=== PATIENT | female | born 1960 | race Caucasian/White ===

== ENCOUNTER 2018-01-15 11:33 | Emergency (ER) | payer SELFPAY ==
[~2018-01-15] VITALS: Ht 157.5 cm; Wt 74.8 kg
[~2018-01-15 11:33] MED LIST: AMLO10/10 PO; AMLO10/20 PO; AMLO5 PO; ASPI81EC PO; ATOR10 PO; ATOR40TA PO; BUPR100; CEPH500 PO; CETI10 PO; CRUTCH3 USE; CRUTCH4 USE; DIPH50 PO; DOXE10 PO; FAMO20 PO; HYDACE5 PO; IBUP200; LORA1 PO; NEOPOLHCSU AS; OXYACE5T PO; PRED10 PO; PRED20 PO; SULTRIDS PO
[2018-01-15] MEDS ORDERED: MELO7.5 PO (11:41)
[2018-01-15] MEDS ORDERED: ASPI81CH PO (11:42)
[2018-01-15] MEDS ORDERED: ZESTRIL40 MG PO (11:42)
[2018-01-15] MEDS ORDERED: SPIR50 PO (11:42)
[2018-01-15] MEDS ORDERED: CARV25 PO (11:42)
[2018-01-15] MEDS ORDERED: Calcium 600 +1 EAC1 PO (11:43)
[2018-01-15] MEDS ORDERED: ATOR10 PO (11:43)
[2018-01-15] MEDS ORDERED: CLOP75 PO (11:43)
[2018-01-15 12:36] LABS: BASOPHILS ABSOLUTE AUTO 0.07 K/mm3 (0.00-0.23); BASOPHILS PERCENT AUTO 1 % (0-2); EOSINOPHILS ABSOLUTE AUTO 0.21 K/mm3 (0.00-0.68); EOSINOPHILS PERCENT AUTO 3 % (0-6); Hematocrit 44.2 % (33.0-51.0); Hemoglobin 14.5 g/dL (11.5-16.0); IMMATURE GRAN ABSOLUTE AUTO 0.03 K/mm3 (0.00-0.10); IMMATURE GRAN PERCENT AUTO 0 % (0-1); LYMPHOCYTES ABSOLUTE AUTO 2.42 K/mm3 (0.84-5.20); LYMPHOCYTES PERCENT AUTO 32 % (21-46); MONOCYTES ABSOLUTE AUTO 0.45 K/mm3 (0.16-1.47); MONOCYTES PERCENT AUTO 6 % (4-13); Mean Corpuscular HGB 29.8 pg (26.0-34.0); Mean Corpuscular HGB Conc 32.8 g/dL (31.5-36.5); Mean Corpuscular Volume 91 fL (80-100); Mean Platelet Volume 9.6 fL (9.1-12.4); NEUTROPHILS ABSOLUTE AUTO 4.37 K/mm3 (1.96-9.15); NEUTROPHILS PERCENT AUTO 58 % (41-73); Platelet Count 316 K/mm3 (150-400); RDW Coefficient Variation 13.2 % (11.7-14.2); RDW Standard Deviation 43.6 fL (35.1-46.3); Red Blood Cell Count 4.86 M/mm3 (3.80-5.20); White Blood Cell Count 7.55 K/mm3 (4.00-11.30)
[2018-01-15 12:51] LABS: Alanine Aminotransfer (ALT/SGP 92 U/L (12-78); Albumin, Blood 3.4 g/dL (3.4-5.0); Albumin/Globulin Ratio 0.9 (0.8-1.8); Alk Phos 116 U/L (50-136); Anion Gap 5 mmol/L (6-16); Aspartate Aminotrans (AST/SGOT 49 U/L (12-37); Bilirubin, Total 0.4 mg/dL (0.1-1.0); Blood Urea Nitrogen 9 mg/dL (8-24); Bun/Creatinine Ratio 13.4 (12.0-20.0); CO2, Blood 29 mmol/L (21-32); Calcium, Blood 8.5 mg/dL (8.5-10.1); Chloride, Blood 107 mmol/L (98-108); Creatinine, Blood 0.67 mg/dL (0.40-1.00); Globulin, Blood 3.9 g/dL (2.2-4.0); Glomerular Filtration Rate >60 (60-); Glucose, Blood 103 mg/dL (70-99); Potassium, Blood 3.8 mmol/L (3.5-5.5); Sodium, Blood 141 mmol/L (136-145); Total Protein, Blood 7.3 g/dL (6.4-8.2)
[2018-01-15 13:19] LABS: Troponin I <0.015 ng/mL (0.000-0.040)
[2018-01-15] MEDS ORDERED: IBUP800 PO (16:38)
[2018-01-15] MEDS ORDERED: Norco 5-325 Ta1 EACH PO (16:38)
[2018-01-15] MEDS ORDERED: CYCL10 PO (16:38)
== END 2018-01-15 16:50 | disposition home or self-care (01) ==
LOC: ER 11:33
PROVIDERS: Internal Medicine
DX: S29.012A Strain of muscle and tendon of back wall of thorax, initial encounter (principal); S39.012A Strain of muscle, fascia and tendon of lower back, initial encounter; L98.9 Disorder of the skin and subcutaneous tissue, unspecified; I10 Essential (primary) hypertension; E78.5 Hyperlipidemia, unspecified; F17.200 Nicotine dependence, unspecified, uncomplicated; Z88.1 Allergy status to other antibiotic agents; Z91.038 Other insect allergy status; Z88.5 Allergy status to narcotic agent; Z79.899 Other long term (current) drug therapy; Z79.82 Long term (current) use of aspirin; X58.XXXA Exposure to other specified factors, initial encounter
CPT/HCPCS: 36415; 74177; 80053; 81000; 83690; 84484; 85025; 93005; 93010; 96374; 96375; 99284; J1170; J2405; Q9967

== ENCOUNTER 2020-02-23 14:40 | Emergency (ER) | payer SELFPAY ==
[~2020-02-23] VITALS: Ht 157.5 cm; Wt 68.0 kg
[~2020-02-23 14:40] MED LIST changes: +ASPI81CH PO; +CARV25 PO; +CLOP75 PO; +CYCL10 PO; +Calcium 600 +1 EAC1 PO; +IBUP800 PO; +MELO7.5 PO; +Norco 5-325 Ta1 EACH PO; +SPIR50 PO; +ZESTRIL40 MG PO
[2020-02-23] MEDS ORDERED: Roxicodone5 MG PO (15:46)
[2020-02-23] MEDS ORDERED: ONDA4ODT MM (15:46)
== END 2020-02-23 15:59 | disposition home or self-care (01) ==
LOC: ER 14:40
DX: S22.32XA Fracture of one rib, left side, initial encounter for closed fracture (principal); W19.XXXA Unspecified fall, initial encounter
CPT/HCPCS: 71101; 73030; 99283-25

== ENCOUNTER 2020-02-24 04:32 | Emergency (ER) | payer OTHER ==
[~2020-02-24] VITALS: Ht 165.1 cm; Wt 81.7 kg
[~2020-02-24 04:32] MED LIST changes: +ONDA4ODT MM; +Roxicodone5 MG PO
== END 2020-02-24 05:39 | disposition home or self-care (01) ==
LOC: ER 04:32
DX: S22.32XA Fracture of one rib, left side, initial encounter for closed fracture (principal); I10 Essential (primary) hypertension; E78.5 Hyperlipidemia, unspecified; F17.200 Nicotine dependence, unspecified, uncomplicated; Z88.1 Allergy status to other antibiotic agents; Z91.030 Bee allergy status; Z88.5 Allergy status to narcotic agent; Z79.82 Long term (current) use of aspirin; Z79.899 Other long term (current) drug therapy; W19.XXXA Unspecified fall, initial encounter
CPT/HCPCS: 71045; 93005; 93010; 96372; 99285-25; A9270; J1170

== ENCOUNTER 2020-03-03 09:53 | Emergency (ER) | payer SELFPAY | END 2020-03-03 10:38 | disposition left against medical advice (07) | LOC: ER 09:53 | DX: Z53.21 Procedure and treatment not carried out due to patient leaving prior to being seen by health care provider (principal) ==

== ENCOUNTER 2020-03-05 12:28 | Emergency (ER) | payer SELFPAY ==
[~2020-03-05] VITALS: Ht 157.5 cm; Wt 74.8 kg
[2020-03-05] MEDS ORDERED: Percocet 5-3251 EACH PO (14:06)
== END 2020-03-05 14:48 | disposition home or self-care (01) ==
LOC: ER 12:28
DX: S22.32XD Fracture of one rib, left side, subsequent encounter for fracture with routine healing (principal); I10 Essential (primary) hypertension; E78.5 Hyperlipidemia, unspecified; Z88.6 Allergy status to analgesic agent; Z88.1 Allergy status to other antibiotic agents; Z91.030 Bee allergy status; Z88.5 Allergy status to narcotic agent; Z79.899 Other long term (current) drug therapy; Z79.82 Long term (current) use of aspirin; Z79.02 Long term (current) use of antithrombotics/antiplatelets; W19.XXXA Unspecified fall, initial encounter
CPT/HCPCS: 96374; 96375; 99282-25; J1170

== ENCOUNTER 2020-11-11 18:53 | Emergency (ER) | payer OTHER ==
[~2020-11-11] VITALS: Ht 165.1 cm; Wt 81.9 kg
[~2020-11-11 18:53] MED LIST changes: +ALBU90OI INH; +DELTASONE20 MG PO; +LEVO750 PO; +Percocet 5-3251 EACH PO
[2020-11-11 19:24] LABS: BASOPHILS ABSOLUTE AUTO 0.09 K/mm3 (0.00-0.23); BASOPHILS PERCENT AUTO 1 % (0-2); EOSINOPHILS ABSOLUTE AUTO 0.18 K/mm3 (0.00-0.68); EOSINOPHILS PERCENT AUTO 2 % (0-6); Hematocrit 48.6 % (33.0-51.0); Hemoglobin 15.1 g/dL (11.5-16.0); IMMATURE GRAN ABSOLUTE AUTO 0.03 K/mm3 (0.00-0.10); IMMATURE GRAN PERCENT AUTO 0 % (0-1); LYMPHOCYTES ABSOLUTE AUTO 2.18 K/mm3 (0.84-5.20); LYMPHOCYTES PERCENT AUTO 27 % (21-46); MONOCYTES ABSOLUTE AUTO 0.41 K/mm3 (0.16-1.47); MONOCYTES PERCENT AUTO 5 % (4-13); Mean Corpuscular HGB 29.9 pg (26.0-34.0); Mean Corpuscular HGB Conc 31.1 g/dL (31.5-36.5); Mean Corpuscular Volume 96 fL (80-100); Mean Platelet Volume 9.6 fL (9.1-12.4); NEUTROPHILS PERCENT AUTO 65 % (41-73); Platelet Count 320 K/mm3 (150-400); RDW Coefficient Variation 14.6 % (11.7-14.2); RDW Standard Deviation 51.7 fL (35.1-46.3); Red Blood Cell Count 5.05 M/mm3 (3.80-5.20); White Blood Cell Count 8.19 K/mm3 (4.00-11.30)
[2020-11-11 19:37] LABS: Alanine Aminotransfer (ALT/SGP 70 U/L (12-78); Albumin, Blood 3.3 g/dL (3.4-5.0); Albumin/Globulin Ratio 0.8 (0.8-1.8); Alk Phos 134 U/L (50-136); Anion Gap 8 mmol/L (6-16); Aspartate Aminotrans (AST/SGOT 56 U/L (12-37); Bilirubin, Total 0.8 mg/dL (0.1-1.0); Blood Urea Nitrogen 17 mg/dL (8-24); Bun/Creatinine Ratio 20.9 (12.0-20.0); CO2, Blood 25 mmol/L (21-32); Calcium, Blood 8.7 mg/dL (8.5-10.1); Chloride, Blood 110 mmol/L (98-108); Creatinine, Blood 0.81 mg/dL (0.40-1.00); Globulin, Blood 4.2 g/dL (2.2-4.0); Glomerular Filtration Rate >60 (60-); Glucose, Blood 119 mg/dL (70-99); Potassium, Blood 3.9 mmol/L (3.5-5.5); Sodium, Blood 143 mmol/L (136-145); Total Protein, Blood 7.5 g/dL (6.4-8.2); Troponin I 0.103 ng/mL (0.000-0.040)
[2020-11-11 20:47] LABS: International Normalized Ratio 1.15; Prothrombin Time Results 12.2 Sec (9.7-11.5)
== END 2020-11-12 01:52 | disposition other institution (70) ==
LOC: ER 18:53
PROVIDERS: Pharmacist; Physician Assistant
DX: I21.4 Non-ST elevation (NSTEMI) myocardial infarction (principal); I10 Essential (primary) hypertension; E78.5 Hyperlipidemia, unspecified; Z79.899 Other long term (current) drug therapy; Z88.6 Allergy status to analgesic agent; Z88.1 Allergy status to other antibiotic agents; Z91.030 Bee allergy status
CPT/HCPCS: 36415; 71045; 80053; 84484; 85025; 85610; 85730; 93005; 93010; 96365; 96366; 96375; 99285-25; A9270; J1644; J2405

== ENCOUNTER 2020-11-26 12:23 | Day surgery (SDC) | payer OTHER ==
[2020-11-26] MEDS ORDERED: Lisinopril2.5 MG PO (12:50)
[2020-11-26] MEDS ORDERED: WARF5 PO (12:50)
[2020-11-26] MEDS ORDERED: CARV3.125 PO (12:50)
[2020-11-26] MEDS ORDERED: FURO80 PO (12:50)
[2020-11-26] MEDS ORDERED: ENOX120I SC (12:51)
--- NOTE | 2020-11-26 12:51 | NUR ---
PT'S FINGERSTICK INR RESULTS 1.1 TODAY. EDUCATED ON MEDS AND COUMADIN DIET. PT TO BRING IN HER LIST OF MEDICATIONS TOMORROW TO VERIFY MED DOSE AND FREQUENCY.
--- NOTE | 2020-11-26 12:57 | NUR ---
DAILY FINGERSTICK INR RESULTS FAXED TO [facility] OFF[facility] AT [phone].
== END 2020-11-26 12:44 | disposition home or self-care (01) ==
LOC: ATC 12:23
DX: I26.93 Single subsegmental thrombotic pulmonary embolism without acute cor pulmonale (principal); I11.0 Hypertensive heart disease with heart failure; I50.21 Acute systolic (congestive) heart failure; J44.9 Chronic obstructive pulmonary disease, unspecified; Z72.0 Tobacco use; Z88.1 Allergy status to other antibiotic agents; Z88.8 Allergy status to other drugs, medicaments and biological substances
CPT/HCPCS: 36416; 85610; 96372; J1650

== ENCOUNTER 2020-11-27 00:31 | Day surgery (SDC) | payer OTHER ==
[~2020-11-27 00:31] MED LIST changes: +CARV3.125 PO; +ENOX120I SC; +FURO80 PO; +Lisinopril2.5 MG PO; +WARF5 PO
[2020-11-27 12:30] LABS: Hematocrit 45.3 % (33.0-51.0); Hemoglobin 14.6 g/dL (11.5-16.0); Mean Corpuscular HGB 29.9 pg (26.0-34.0); Mean Corpuscular HGB Conc 32.2 g/dL (31.5-36.5); Mean Corpuscular Volume 93 fL (80-100); Mean Platelet Volume 10.2 fL (9.1-12.4); Platelet Count 558 K/mm3 (150-400); RDW Coefficient Variation 13.8 % (11.7-14.2); RDW Standard Deviation 47.6 fL (35.1-46.3); Red Blood Cell Count 4.88 M/mm3 (3.80-5.20); White Blood Cell Count 9.56 K/mm3 (4.00-11.30)
[2020-11-27 13:13] LABS: Anion Gap 7 mmol/L (6-16); Blood Urea Nitrogen 15 mg/dL (8-24); Bun/Creatinine Ratio 22.2 (12.0-20.0); CO2, Blood 27 mmol/L (21-32); Calcium, Blood 8.8 mg/dL (8.5-10.1); Chloride, Blood 105 mmol/L (98-108); Creatinine, Blood 0.68 mg/dL (0.40-1.00); Glomerular Filtration Rate >60 (60-); Glucose, Blood 181 mg/dL (70-99); Sodium, Blood 139 mmol/L (136-145)
--- NOTE | 2020-11-27 18:30 | NUR ---
PT STS SHE HAS NOT RECEIVED HER RX FOR COUMADIN, STS HER PHARMACY DID NOT RECEIVE IT. NOTIFIED [facility] OFFICE, LEFT MESSAGE WITH [employer] BECAUSE NO PROVIDER OR PRINCIPAL TRAINER WAS AVAILABLE AT 1150 TODAY.
== END 2020-11-27 12:20 | disposition home or self-care (01) ==
LOC: ATC 00:31
PROVIDERS: Physician Assistant
DX: I26.93 Single subsegmental thrombotic pulmonary embolism without acute cor pulmonale (principal); I21.4 Non-ST elevation (NSTEMI) myocardial infarction; I10 Essential (primary) hypertension; J44.9 Chronic obstructive pulmonary disease, unspecified; R10.32 Left lower quadrant pain; Z88.1 Allergy status to other antibiotic agents; Z88.6 Allergy status to analgesic agent; Z87.891 Personal history of nicotine dependence; Z79.01 Long term (current) use of anticoagulants
CPT/HCPCS: 36416; 80048; 85027; 85610; 96372; J1650

== ENCOUNTER 2020-11-28 03:47 | Day surgery (SDC) | payer OTHER ==
--- NOTE | 2020-11-28 12:37 | NUR ---
PT CAME TO ROOM C/O R UPPER QUADRANT AND FLANK PAIN. STATES IT IS A 8. TALKS ABOUT NEEDING SLEEP. STATES SHE ATE [employer] AND [employer] LAST NIGHT. SHE STATES SHE WOKE UP WITH THIS PAIN. PT STATES SHE IS GOING TO GO HOME AND TAKE A NAP. IF SHE WAKES UP WITH THIS PAIN SHE WILL GO TO ER.
== END 2020-11-28 12:07 | disposition home or self-care (01) ==
LOC: ATC 03:47
DX: I26.93 Single subsegmental thrombotic pulmonary embolism without acute cor pulmonale (principal); I11.0 Hypertensive heart disease with heart failure; J44.9 Chronic obstructive pulmonary disease, unspecified; I50.21 Acute systolic (congestive) heart failure; I25.2 Old myocardial infarction; Z79.01 Long term (current) use of anticoagulants; Z87.891 Personal history of nicotine dependence; Z88.6 Allergy status to analgesic agent; Z88.1 Allergy status to other antibiotic agents
CPT/HCPCS: 36416; 85610; 96372; J1650

== ENCOUNTER 2020-11-29 02:25 | Day surgery (SDC) | payer OTHER | END 2020-11-29 11:48 | disposition home or self-care (01) | LOC: ATC 02:25 | DX: I26.93 Single subsegmental thrombotic pulmonary embolism without acute cor pulmonale (principal); I50.21 Acute systolic (congestive) heart failure; I11.0 Hypertensive heart disease with heart failure; E66.9 Obesity, unspecified; J44.9 Chronic obstructive pulmonary disease, unspecified; Z79.899 Other long term (current) drug therapy; Z87.891 Personal history of nicotine dependence; Z68.31 Body mass index [BMI] 31.0-31.9, adult; Z88.6 Allergy status to analgesic agent; Z88.1 Allergy status to other antibiotic agents; Z91.038 Other insect allergy status; Z79.01 Long term (current) use of anticoagulants | CPT/HCPCS: 36416; 85610; 96372; J1650 ==

== ENCOUNTER 2020-11-30 00:29 | Day surgery (SDC) | payer OTHER ==
--- NOTE | 2020-11-30 11:00 | NUR ---
COUMADIN INCREASED. PER THE PT, DR. HAYS CALLED HER AND STATED THAT SHE IS TO INCREASE HER COUMADIN TO 10MG DAILY FOR 3 DAYS STARTING 11/30/20. THEN PT IS TO RETURN TO 5MG OF COUMADIN DAILY.
== END 2020-11-30 10:57 | disposition home or self-care (01) ==
LOC: ATC 00:29
DX: I26.93 Single subsegmental thrombotic pulmonary embolism without acute cor pulmonale (principal); I21.4 Non-ST elevation (NSTEMI) myocardial infarction; J44.1 Chronic obstructive pulmonary disease with (acute) exacerbation; I11.0 Hypertensive heart disease with heart failure; I50.21 Acute systolic (congestive) heart failure; J96.01 Acute respiratory failure with hypoxia; G93.41 Metabolic encephalopathy; F15.19 Other stimulant abuse with unspecified stimulant-induced disorder; Z79.01 Long term (current) use of anticoagulants; Z87.891 Personal history of nicotine dependence
CPT/HCPCS: 36416; 85610; 96372; J1650

== ENCOUNTER 2020-12-01 00:08 | Day surgery (SDC) | payer OTHER | END 2020-12-01 11:17 | disposition home or self-care (01) | LOC: ATC 00:08 | DX: I26.93 Single subsegmental thrombotic pulmonary embolism without acute cor pulmonale (principal); J44.9 Chronic obstructive pulmonary disease, unspecified; I11.0 Hypertensive heart disease with heart failure; I50.21 Acute systolic (congestive) heart failure; I25.2 Old myocardial infarction; F15.11 Other stimulant abuse, in remission; Z87.891 Personal history of nicotine dependence; Z79.01 Long term (current) use of anticoagulants; Z79.82 Long term (current) use of aspirin | CPT/HCPCS: 36416; 85610; 96372; J1650 ==

== ENCOUNTER 2020-12-02 00:09 | Day surgery (SDC) | payer OTHER ==
--- NOTE | 2020-12-02 09:52 | NUR ---
INR RESULTS FAXED TO DR [facility] PER ORDER REQUEST
== END 2020-12-02 08:55 | disposition home or self-care (01) ==
LOC: ATC 00:09
DX: I26.93 Single subsegmental thrombotic pulmonary embolism without acute cor pulmonale (principal); I11.0 Hypertensive heart disease with heart failure; J44.9 Chronic obstructive pulmonary disease, unspecified; I21.4 Non-ST elevation (NSTEMI) myocardial infarction; R10.32 Left lower quadrant pain; G93.41 Metabolic encephalopathy; I50.21 Acute systolic (congestive) heart failure; J96.01 Acute respiratory failure with hypoxia; F15.10 Other stimulant abuse, uncomplicated; Z88.1 Allergy status to other antibiotic agents; Z88.6 Allergy status to analgesic agent; Z87.891 Personal history of nicotine dependence; Z79.01 Long term (current) use of anticoagulants
CPT/HCPCS: 36416; 85610; 96372; J1650

== ENCOUNTER 2020-12-03 00:09 | Day surgery (SDC) | payer OTHER | END 2020-12-03 11:05 | disposition home or self-care (01) | LOC: ATC 00:09 | DX: I26.93 Single subsegmental thrombotic pulmonary embolism without acute cor pulmonale (principal); J44.9 Chronic obstructive pulmonary disease, unspecified; I11.0 Hypertensive heart disease with heart failure; I50.21 Acute systolic (congestive) heart failure; Z87.891 Personal history of nicotine dependence; Z79.01 Long term (current) use of anticoagulants | CPT/HCPCS: 36416; 85610; 96372; J1650 ==

== ENCOUNTER 2020-12-04 07:07 | Day surgery (SDC) | payer OTHER ==
--- NOTE | 2020-12-04 12:00 | NUR ---
PT TO GO TO OUTPATIENT LAB OR [facility] OVER THE WEEKEND FOR FINGERSTICK INR AND THEN COME INTO THE [facility] FOR HER LOVENOX INJECTION BOTH DAYS. COPY OF ORDER GIVEN TO PT AND FAXED TO OUTPATIENT LAB.
--- NOTE | 2020-12-04 13:23 | NUR ---
INR RESULTS FROM TODAY FAXED TO [facility]. INR TODAY WAS 1.5.
== END 2020-12-04 11:42 | disposition home or self-care (01) ==
LOC: ATC 07:07
DX: I26.93 Single subsegmental thrombotic pulmonary embolism without acute cor pulmonale (principal); I11.0 Hypertensive heart disease with heart failure; J44.9 Chronic obstructive pulmonary disease, unspecified; I25.2 Old myocardial infarction; G93.41 Metabolic encephalopathy; I50.21 Acute systolic (congestive) heart failure; F15.10 Other stimulant abuse, uncomplicated; Z88.6 Allergy status to analgesic agent; Z88.1 Allergy status to other antibiotic agents; Z87.891 Personal history of nicotine dependence; Z79.01 Long term (current) use of anticoagulants; Z79.82 Long term (current) use of aspirin
CPT/HCPCS: 36416; 85610; 96372; J1650

== ENCOUNTER 2020-12-05 01:36 | Day surgery (SDC) | payer OTHER | END 2020-12-05 11:29 | disposition home or self-care (01) | LOC: ATC 01:36 | DX: I26.93 Single subsegmental thrombotic pulmonary embolism without acute cor pulmonale (principal); J44.9 Chronic obstructive pulmonary disease, unspecified; I11.0 Hypertensive heart disease with heart failure; I50.21 Acute systolic (congestive) heart failure; I25.2 Old myocardial infarction; Z87.891 Personal history of nicotine dependence; Z79.01 Long term (current) use of anticoagulants; Z79.82 Long term (current) use of aspirin; Z88.1 Allergy status to other antibiotic agents; Z88.6 Allergy status to analgesic agent | CPT/HCPCS: 36416; 85610; 96372; J1650 ==

== ENCOUNTER 2020-12-06 01:24 | Day surgery (SDC) | payer OTHER | END 2020-12-06 12:07 | disposition home or self-care (01) | LOC: ATC 01:24 | DX: I26.93 Single subsegmental thrombotic pulmonary embolism without acute cor pulmonale (principal); I11.0 Hypertensive heart disease with heart failure; I50.21 Acute systolic (congestive) heart failure; I25.2 Old myocardial infarction; J44.9 Chronic obstructive pulmonary disease, unspecified; F15.10 Other stimulant abuse, uncomplicated; Z88.6 Allergy status to analgesic agent; Z88.1 Allergy status to other antibiotic agents; Z86.61 Personal history of infections of the central nervous system; Z87.891 Personal history of nicotine dependence; Z79.01 Long term (current) use of anticoagulants; Z79.82 Long term (current) use of aspirin; Z79.899 Other long term (current) drug therapy | CPT/HCPCS: 96372; J1650 ==

== ENCOUNTER 2020-12-07 00:30 | Day surgery (SDC) | payer OTHER ==
--- NOTE | 2020-12-07 11:15 | NUR ---
DISCUSSED DIET AND FOODS THAT CAN AFFECT INR NUMBER. PT VERBALIZED UNDERSTANDING. PT HEARS FROM MD EVERY NIGHT REGARDING COUMADIN DOSING. PT GOING TO ASK MD IRBY IF SHE CAN INCREASE HER COUMADIN DOSE. PT TOOK 5MG COUMADIN LAST NIGHT DIRECTED BY
--- NOTE | 2020-12-07 11:18 | NUR ---
INR RESULTS FAXED TO [facility] PER WRITTEN ORDER
[2020-12-08] MEDS ORDERED: BUDESONIDE-FO10.2 G2 INH (11:23)
[2020-12-08] MEDS ORDERED: ASPI81CH PO (11:24)
[2020-12-08] MEDS ORDERED: POTCHL20ER PO (11:26)
[2020-12-08] MEDS ORDERED: MAGNESIUM OXID500 MG PO (11:26)
[2020-12-08] MEDS ORDERED: SPIR25 PO (11:27)
[2020-12-08] MEDS ORDERED: ATOR40TA PO (11:28)
== END 2020-12-07 11:11 | disposition home or self-care (01) ==
LOC: ATC 00:30
DX: I26.93 Single subsegmental thrombotic pulmonary embolism without acute cor pulmonale (principal); J44.9 Chronic obstructive pulmonary disease, unspecified; I11.0 Hypertensive heart disease with heart failure; I50.21 Acute systolic (congestive) heart failure; I25.2 Old myocardial infarction; F15.11 Other stimulant abuse, in remission; Z87.891 Personal history of nicotine dependence; Z79.01 Long term (current) use of anticoagulants; Z79.82 Long term (current) use of aspirin; Z88.6 Allergy status to analgesic agent; Z88.1 Allergy status to other antibiotic agents; Z86.61 Personal history of infections of the central nervous system
CPT/HCPCS: 85610; 96372; J1650

== ENCOUNTER 2020-12-08 00:35 | Day surgery (SDC) | payer OTHER ==
[2020-12-08] MEDS ORDERED: BUDESONIDE-FO10.2 G2 INH (11:23)
[2020-12-08] MEDS ORDERED: ASPI81CH PO (11:24)
[2020-12-08] MEDS ORDERED: MAGNESIUM OXID500 MG PO (11:26)
[2020-12-08] MEDS ORDERED: POTCHL20ER PO (11:26)
[2020-12-08] MEDS ORDERED: SPIR25 PO (11:27)
[2020-12-08] MEDS ORDERED: ATOR40TA PO (11:28)
== END 2020-12-08 11:27 | disposition home or self-care (01) ==
LOC: ATC 00:35
DX: I26.93 Single subsegmental thrombotic pulmonary embolism without acute cor pulmonale (principal); I11.0 Hypertensive heart disease with heart failure; I50.21 Acute systolic (congestive) heart failure; J44.9 Chronic obstructive pulmonary disease, unspecified; F15.10 Other stimulant abuse, uncomplicated; I25.2 Old myocardial infarction; Z79.01 Long term (current) use of anticoagulants; Z88.6 Allergy status to analgesic agent; Z88.1 Allergy status to other antibiotic agents; Z87.891 Personal history of nicotine dependence
CPT/HCPCS: 36416; 85610; 96372; J1650

== ENCOUNTER 2020-12-09 00:08 | Day surgery (SDC) | payer OTHER ==
[~2020-12-09 00:08] MED LIST changes: +BUDESONIDE-FO10.2 G2 INH; +MAGNESIUM OXID500 MG PO; +POTCHL20ER PO; +SPIR25 PO
--- NOTE | 2020-12-09 13:45 | NUR ---
FINGERSTICK INR = 1.7 TODAY. RESULTS FAXED TO [facility].
== END 2020-12-09 11:23 | disposition home or self-care (01) ==
LOC: ATC 00:08
DX: I26.93 Single subsegmental thrombotic pulmonary embolism without acute cor pulmonale (principal); J44.9 Chronic obstructive pulmonary disease, unspecified; I11.0 Hypertensive heart disease with heart failure; I50.21 Acute systolic (congestive) heart failure; Z88.1 Allergy status to other antibiotic agents; Z88.8 Allergy status to other drugs, medicaments and biological substances; Z87.891 Personal history of nicotine dependence
CPT/HCPCS: 36416; 85610; 96372; J1650

== ENCOUNTER 2020-12-10 00:19 | Day surgery (SDC) | payer OTHER ==
--- NOTE | 2020-12-10 13:02 | NUR ---
fingerstick INR results faxed to [facility] office.
== END 2020-12-10 11:18 | disposition home or self-care (01) ==
LOC: ATC 00:19
DX: I26.93 Single subsegmental thrombotic pulmonary embolism without acute cor pulmonale (principal); I25.2 Old myocardial infarction; I11.0 Hypertensive heart disease with heart failure; J44.9 Chronic obstructive pulmonary disease, unspecified; Z87.891 Personal history of nicotine dependence; Z88.6 Allergy status to analgesic agent; Z88.1 Allergy status to other antibiotic agents; I50.21 Acute systolic (congestive) heart failure; Z79.82 Long term (current) use of aspirin; Z79.01 Long term (current) use of anticoagulants
CPT/HCPCS: 36416; 85610; 99211; J1650

== ENCOUNTER 2020-12-11 01:56 | Day surgery (SDC) | payer OTHER | END 2020-12-11 22:46 | disposition home or self-care (01) | LOC: ATC 01:56 | DX: I26.93 Single subsegmental thrombotic pulmonary embolism without acute cor pulmonale (principal); J44.9 Chronic obstructive pulmonary disease, unspecified; I11.0 Hypertensive heart disease with heart failure; I50.20 Unspecified systolic (congestive) heart failure; Z87.891 Personal history of nicotine dependence; Z88.1 Allergy status to other antibiotic agents; Z88.6 Allergy status to analgesic agent ==

== ENCOUNTER 2020-12-12 01:37 | Observation (INO) | payer OTHER ==
[~2020-12-12] VITALS: Ht 157.5 cm; Wt 79.7 kg
[2020-12-12 02:19] LABS: BASOPHILS ABSOLUTE AUTO 0.07 K/mm3 (0.00-0.23); BASOPHILS PERCENT AUTO 1 % (0-2); EOSINOPHILS ABSOLUTE AUTO 0.58 K/mm3 (0.00-0.68); EOSINOPHILS PERCENT AUTO 8 % (0-6); Hematocrit 45.2 % (33.0-51.0); Hemoglobin 14.7 g/dL (11.5-16.0); IMMATURE GRAN ABSOLUTE AUTO 0.03 K/mm3 (0.00-0.10); IMMATURE GRAN PERCENT AUTO 0 % (0-1); LYMPHOCYTES ABSOLUTE AUTO 2.58 K/mm3 (0.84-5.20); LYMPHOCYTES PERCENT AUTO 33 % (21-46); MONOCYTES ABSOLUTE AUTO 0.42 K/mm3 (0.16-1.47); MONOCYTES PERCENT AUTO 5 % (4-13); Mean Corpuscular HGB 30.2 pg (26.0-34.0); Mean Corpuscular HGB Conc 32.5 g/dL (31.5-36.5); Mean Corpuscular Volume 93 fL (80-100); Mean Platelet Volume 9.3 fL (9.1-12.4); NEUTROPHILS ABSOLUTE AUTO 4.06 K/mm3 (1.96-9.15); NEUTROPHILS PERCENT AUTO 53 % (41-73); Platelet Count 366 K/mm3 (150-400); RDW Coefficient Variation 14.6 % (11.7-14.2); RDW Standard Deviation 50.7 fL (35.1-46.3); Red Blood Cell Count 4.86 M/mm3 (3.80-5.20); White Blood Cell Count 7.74 K/mm3 (4.00-11.30)
[2020-12-12 02:36] LABS: International Normalized Ratio 2.31; Prothrombin Time Results 23.6 Sec (9.7-11.5)
[2020-12-12 02:37] LABS: Alanine Aminotransfer (ALT/SGP 51 U/L (12-78); Albumin, Blood 3.4 g/dL (3.4-5.0); Albumin/Globulin Ratio 0.8 (0.8-1.8); Alk Phos 144 U/L (50-136); Anion Gap 9 mmol/L (6-16); Aspartate Aminotrans (AST/SGOT 49 U/L (12-37); Bilirubin, Total 0.3 mg/dL (0.1-1.0); Blood Urea Nitrogen 19 mg/dL (8-24); Bun/Creatinine Ratio 25.5 (12.0-20.0); CO2, Blood 24 mmol/L (21-32); Calcium, Blood 8.5 mg/dL (8.5-10.1); Chloride, Blood 108 mmol/L (98-108); Creatinine, Blood 0.75 mg/dL (0.40-1.00); Globulin, Blood 4.2 g/dL (2.2-4.0); Glomerular Filtration Rate >60 (60-); Glucose, Blood 141 mg/dL (70-99); Magnesium, Blood 1.9 mg/dL (1.6-2.4); Potassium, Blood 4.2 mmol/L (3.5-5.5); Sodium, Blood 141 mmol/L (136-145); Total Protein, Blood 7.6 g/dL (6.4-8.2); Troponin I 0.015 ng/mL (0.000-0.040)
[2020-12-12 10:05] LABS: BASOPHILS ABSOLUTE AUTO 0.06 K/mm3 (0.00-0.23); BASOPHILS PERCENT AUTO 1 % (0-2); EOSINOPHILS ABSOLUTE AUTO 0.49 K/mm3 (0.00-0.68); EOSINOPHILS PERCENT AUTO 7 % (0-6); Hematocrit 43.4 % (33.0-51.0); Hemoglobin 13.9 g/dL (11.5-16.0); IMMATURE GRAN ABSOLUTE AUTO 0.03 K/mm3 (0.00-0.10); IMMATURE GRAN PERCENT AUTO 0 % (0-1); LYMPHOCYTES ABSOLUTE AUTO 2.15 K/mm3 (0.84-5.20); LYMPHOCYTES PERCENT AUTO 29 % (21-46); MONOCYTES ABSOLUTE AUTO 0.51 K/mm3 (0.16-1.47); MONOCYTES PERCENT AUTO 7 % (4-13); Mean Corpuscular Volume 94 fL (80-100); Mean Platelet Volume 9.5 fL (9.1-12.4); NEUTROPHILS ABSOLUTE AUTO 4.07 K/mm3 (1.96-9.15); NEUTROPHILS PERCENT AUTO 56 % (41-73); Platelet Count 326 K/mm3 (150-400); RDW Coefficient Variation 14.8 % (11.7-14.2); Red Blood Cell Count 4.64 M/mm3 (3.80-5.20); White Blood Cell Count 7.31 K/mm3 (4.00-11.30)
[2020-12-12 10:27] LABS: Alanine Aminotransfer (ALT/SGP 83 U/L (12-78); Albumin, Blood 3.4 g/dL (3.4-5.0); Albumin/Globulin Ratio 0.9 (0.8-1.8); Alk Phos 126 U/L (50-136); Anion Gap 3 mmol/L (6-16); Aspartate Aminotrans (AST/SGOT 109 U/L (12-37); Bilirubin, Total 0.4 mg/dL (0.1-1.0); Blood Urea Nitrogen 21 mg/dL (8-24); CO2, Blood 27 mmol/L (21-32); CPK Creatine Kinase 61 U/L (26-193); Calcium, Blood 8.7 mg/dL (8.5-10.1); Chloride, Blood 111 mmol/L (98-108); Creatinine, Blood 0.72 mg/dL (0.40-1.00); Globulin, Blood 3.8 g/dL (2.2-4.0); Glomerular Filtration Rate >60 (60-); Glucose, Blood 80 mg/dL (70-99); Potassium, Blood 4.4 mmol/L (3.5-5.5); Sodium, Blood 141 mmol/L (136-145); Total Protein, Blood 7.2 g/dL (6.4-8.2); Troponin I 0.121 ng/mL (0.000-0.040)
--- NOTE | 2020-12-12 12:51 | NUR ---
ECHOCARDIOGRAM COMPLETED
--- NOTE | 2020-12-12 17:37 | NUR ---
SHIFT SUMMARY PATIENT ALERT AND ORIENTED THIS SHIFT. PATIENT SLEPT MUCH OF THIS SHIFT AFTER EARLY AM ADMISSION. PATIENT STATES CONTINUED MODERATE CP THIS SHIFT. CARDIOLOGY IN THIS AM TO CONSULT ON THE PATIENT. PATIENT CONTINUES TO WEAR THE EXTERNAL DEFIBULATOR PRESCRIBED AT [facility]. PATIENT UP INDEPENDENTLY IN THE ROOM.
[2020-12-12 18:36] LABS: Troponin I 0.094 ng/mL (0.000-0.040)
[2020-12-13 04:57] LABS: BASOPHILS ABSOLUTE AUTO 0.06 K/mm3 (0.00-0.23); BASOPHILS PERCENT AUTO 1 % (0-2); EOSINOPHILS ABSOLUTE AUTO 0.51 K/mm3 (0.00-0.68); EOSINOPHILS PERCENT AUTO 7 % (0-6); Hematocrit 44.1 % (33.0-51.0); Hemoglobin 14.2 g/dL (11.5-16.0); IMMATURE GRAN ABSOLUTE AUTO 0.03 K/mm3 (0.00-0.10); IMMATURE GRAN PERCENT AUTO 0 % (0-1); LYMPHOCYTES PERCENT AUTO 35 % (21-46); MONOCYTES ABSOLUTE AUTO 0.41 K/mm3 (0.16-1.47); MONOCYTES PERCENT AUTO 6 % (4-13); Mean Corpuscular HGB 30.5 pg (26.0-34.0); Mean Corpuscular HGB Conc 32.2 g/dL (31.5-36.5); Mean Corpuscular Volume 95 fL (80-100); Mean Platelet Volume 9.6 fL (9.1-12.4); NEUTROPHILS ABSOLUTE AUTO 3.45 K/mm3 (1.96-9.15); NEUTROPHILS PERCENT AUTO 50 % (41-73); Platelet Count 303 K/mm3 (150-400); RDW Coefficient Variation 14.9 % (11.7-14.2); RDW Standard Deviation 51.4 fL (35.1-46.3); Red Blood Cell Count 4.65 M/mm3 (3.80-5.20); White Blood Cell Count 6.86 K/mm3 (4.00-11.30)
[2020-12-13 05:11] LABS: International Normalized Ratio 2.41; Prothrombin Time Results 24.5 Sec (9.7-11.5)
--- NOTE | 2020-12-13 05:14 | NUR ---
SHIFT SUMMARY ASSUMED CARE OF PT AT 1900. PT IS A/OX4. 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 PT DID NOT SLEEP WITH HER LIFE VEST ON PER REQUEST. LUNG SOUNDS CLEAR. PT IS INDEPENDENT TO BATHROOM. PT C/O GENERALIZED PAIN. MEDICATED PER EMAR. CALL LIGHT IN REACH, BED IN LOWEST POSTION.
[2020-12-13 05:24] LABS: Alanine Aminotransfer (ALT/SGP 63 U/L (12-78); Albumin, Blood 3.3 g/dL (3.4-5.0); Albumin/Globulin Ratio 0.8 (0.8-1.8); Alk Phos 110 U/L (50-136); Anion Gap 5 mmol/L (6-16); Aspartate Aminotrans (AST/SGOT 50 U/L (12-37); Bilirubin, Total 0.5 mg/dL (0.1-1.0); Blood Urea Nitrogen 20 mg/dL (8-24); Bun/Creatinine Ratio 30.6 (12.0-20.0); CO2, Blood 25 mmol/L (21-32); Calcium, Blood 8.7 mg/dL (8.5-10.1); Chloride, Blood 110 mmol/L (98-108); Creatinine, Blood 0.65 mg/dL (0.40-1.00); Glomerular Filtration Rate >60 (60-); Glucose, Blood 90 mg/dL (70-99); Potassium, Blood 4.2 mmol/L (3.5-5.5); Sodium, Blood 140 mmol/L (136-145); Total Protein, Blood 7.3 g/dL (6.4-8.2)
[2020-12-13] MEDS ORDERED: FURO20 PO (12:57)
[2020-12-13] MEDS ORDERED: LOSA25 PO (12:58)
[2020-12-13] MEDS ORDERED: ALDACTONE25 MG PO (13:00)
--- NOTE | 2020-12-13 14:46 | NUR ---
DISCHARGE NOTE. PATIENT DISCHARGED TO HOME. PATIENT ALERT AND ORIENTED THROUGHOUT THIS SHIFT. PATIENT UP INDEPENDENTLY IN THE ROOM. PATIENT WALKING IN THE HALLS THROUGHOUT THIS SHIFT. PATIENT DENIES CHEST PAIN THIS SHIFT. IV REMOVED PRIOR TO DISCHARGE. DISCHARGE AND MEDICATION EDUCATION PROVIDED. PATIENT STATES NO QUESTIONS AT THIS TIME. PATIENT TO VEHICLE VIA WHEELCHAIR.
== END 2020-12-13 13:50 | disposition home or self-care (01) ==
LOC: ER 01:37 → MEDS 01:38
PROVIDERS: Emergency Medicine; ADMIT Internal Medicine
DX: R07.89 Other chest pain (principal); I42.9 Cardiomyopathy, unspecified; I44.7 Left bundle-branch block, unspecified; I11.0 Hypertensive heart disease with heart failure; I50.9 Heart failure, unspecified; I25.2 Old myocardial infarction; J44.1 Chronic obstructive pulmonary disease with (acute) exacerbation; F17.210 Nicotine dependence, cigarettes, uncomplicated; Z86.711 Personal history of pulmonary embolism; Z86.74 Personal history of sudden cardiac arrest; Z88.6 Allergy status to analgesic agent; Z88.1 Allergy status to other antibiotic agents; Z91.038 Other insect allergy status; Z79.01 Long term (current) use of anticoagulants; Z79.82 Long term (current) use of aspirin; Z95.810 Presence of automatic (implantable) cardiac defibrillator
CPT/HCPCS: 36415; 71045; 80053; 82550; 83735; 83880; 84484; 85025; 85610; 85730; 93005; 93010; 93306; 94640; 94760; 96374; 96375; 99285-25; A9270; G0378; J2270; J3010

== ENCOUNTER → 2021-01-01 | Outpatient (CLI) | payer OTHER ==
[~2021-01-01] MED LIST changes: +ALDACTONE25 MG PO; +Chantix1 MG; +FURO20 PO; +HYDHCL25; +LIDO5TO TOP; +LOSA25 PO; +NITR.4SL SL; +NITRO PATCH
[2021-01-05 15:10] LABS: HPV 16 Negative (Negative); HPV 18 Negative (Negative); HPV OTHER HR TYPES Negative (Negative)
== END ==
LOC: LAB SHORT 09:00 → LAB SRC 09:00
PROVIDERS: Nurse Practitioner Family
DX: Z00.00 Encounter for general adult medical examination without abnormal findings (principal)
CPT/HCPCS: 87624; G0123

== ENCOUNTER 2021-01-04 18:55 | Observation (INO) | payer OTHER ==
[~2021-01-04] VITALS: Ht 157.5 cm; Wt 79.6 kg
[~2021-01-04 18:55] MED LIST changes: -Chantix1 MG; -HYDHCL25; -LIDO5TO TOP; -NITR.4SL SL; -NITRO PATCH
[2021-01-04 19:24] LABS: BASOPHILS ABSOLUTE AUTO 0.09 K/mm3 (0.00-0.23); BASOPHILS PERCENT AUTO 1 % (0-2); EOSINOPHILS PERCENT AUTO 4 % (0-6); Hematocrit 40.3 % (33.0-51.0); Hemoglobin 13.5 g/dL (11.5-16.0); IMMATURE GRAN ABSOLUTE AUTO 0.07 K/mm3 (0.00-0.10); IMMATURE GRAN PERCENT AUTO 1 % (0-1); LYMPHOCYTES ABSOLUTE AUTO 2.83 K/mm3 (0.84-5.20); LYMPHOCYTES PERCENT AUTO 33 % (21-46); MONOCYTES ABSOLUTE AUTO 0.47 K/mm3 (0.16-1.47); MONOCYTES PERCENT AUTO 6 % (4-13); Mean Corpuscular HGB 30.9 pg (26.0-34.0); Mean Corpuscular HGB Conc 33.5 g/dL (31.5-36.5); Mean Corpuscular Volume 92 fL (80-100); Mean Platelet Volume 9.2 fL (9.1-12.4); NEUTROPHILS PERCENT AUTO 56 % (41-73); Platelet Count 387 K/mm3 (150-400); RDW Coefficient Variation 15.3 % (11.7-14.2); RDW Standard Deviation 51.7 fL (35.1-46.3); Red Blood Cell Count 4.37 M/mm3 (3.80-5.20); White Blood Cell Count 8.56 K/mm3 (4.00-11.30)
[2021-01-04 19:43] LABS: Alanine Aminotransfer (ALT/SGP 32 U/L (12-78); Albumin, Blood 3.6 g/dL (3.4-5.0); Albumin/Globulin Ratio 0.9 (0.8-1.8); Alk Phos 131 U/L (50-136); Anion Gap 6 mmol/L (6-16); Aspartate Aminotrans (AST/SGOT 22 U/L (12-37); Bilirubin, Total 0.3 mg/dL (0.1-1.0); Blood Urea Nitrogen 20 mg/dL (8-24); Bun/Creatinine Ratio 20.9 (12.0-20.0); CO2, Blood 30 mmol/L (21-32); Chloride, Blood 105 mmol/L (98-108); Creatinine, Blood 0.96 mg/dL (0.40-1.00); Globulin, Blood 3.9 g/dL (2.2-4.0); Glomerular Filtration Rate >60 (60-); Glucose, Blood 100 mg/dL (70-99); International Normalized Ratio 2.36; Potassium, Blood 3.9 mmol/L (3.5-5.5); Prothrombin Time Results 24.1 Sec (9.7-11.5); Sodium, Blood 141 mmol/L (136-145); Total Protein, Blood 7.5 g/dL (6.4-8.2); Troponin I <0.015 ng/mL (0.000-0.040)
[2021-01-04] MEDS ORDERED: HYDHCL25 (23:34)
--- NOTE | 2021-01-04 23:34 | NUR ---
ADMIT NOTE PT ARRIVED TO PCU FROM ED VIA ED STRETCHER AT APPROX 1115. THE PT AMBULATED FROM ED STRETCHER TO PCU BED INDEPENDENTLY. VSS. SP02>92% ON 2L NC. TELEMETRY READS SR, HR 70'S. PT C/O OF 8/10 CP "MIDDLE OF CHEST" "HEAVY" AND R ARM AND R FOOT NUMBNESS. PT ORIENTED TO ROOM, EATING SANDWICH AND CHEESE. CALL LIGHT IN REACH.
[2021-01-05 03:14] LABS: BASOPHILS ABSOLUTE AUTO 0.08 K/mm3 (0.00-0.23); BASOPHILS PERCENT AUTO 1 % (0-2); EOSINOPHILS ABSOLUTE AUTO 0.42 K/mm3 (0.00-0.68); EOSINOPHILS PERCENT AUTO 5 % (0-6); Hematocrit 38.9 % (33.0-51.0); Hemoglobin 12.7 g/dL (11.5-16.0); IMMATURE GRAN ABSOLUTE AUTO 0.05 K/mm3 (0.00-0.10); IMMATURE GRAN PERCENT AUTO 1 % (0-1); LYMPHOCYTES ABSOLUTE AUTO 2.78 K/mm3 (0.84-5.20); LYMPHOCYTES PERCENT AUTO 32 % (21-46); MONOCYTES ABSOLUTE AUTO 0.58 K/mm3 (0.16-1.47); MONOCYTES PERCENT AUTO 7 % (4-13); Mean Corpuscular HGB 30.6 pg (26.0-34.0); Mean Corpuscular HGB Conc 32.6 g/dL (31.5-36.5); Mean Corpuscular Volume 94 fL (80-100); Mean Platelet Volume 8.8 fL (9.1-12.4); NEUTROPHILS ABSOLUTE AUTO 4.67 K/mm3 (1.96-9.15); NEUTROPHILS PERCENT AUTO 54 % (41-73); Platelet Count 363 K/mm3 (150-400); RDW Coefficient Variation 15.6 % (11.7-14.2); RDW Standard Deviation 53.4 fL (35.1-46.3); Red Blood Cell Count 4.15 M/mm3 (3.80-5.20); White Blood Cell Count 8.58 K/mm3 (4.00-11.30)
[2021-01-05 03:32] LABS: Anion Gap 3 mmol/L (6-16); Blood Urea Nitrogen 24 mg/dL (8-24); Bun/Creatinine Ratio 27.4 (12.0-20.0); CO2, Blood 31 mmol/L (21-32); Calcium, Blood 8.7 mg/dL (8.5-10.1); Chloride, Blood 107 mmol/L (98-108); Creatinine, Blood 0.88 mg/dL (0.40-1.00); Glomerular Filtration Rate >60 (60-); Glucose, Blood 105 mg/dL (70-99); Potassium, Blood 4.5 mmol/L (3.5-5.5); Sodium, Blood 141 mmol/L (136-145); Troponin I <0.015 ng/mL (0.000-0.040)
--- NOTE | 2021-01-05 05:32 | NUR ---
SHIFT SUMMARY PT A&OX4. VSS. SP02>90% ON 2L NC. SOB W/ AMBULATION. TELEMETRY READS SR, HR 70'S. PT C/O FO 8/10 CP THIS SHIFT. DIULADID AND FENTANYL FROM ED DIDNT HELP PT STATES. CALL PLACED TO MD GORDILLO. MD GORDILLO W/ ORDERS FOR ONE TIME MORPHINE IV. PT STATES MODERATE RELIEF OF PAIN. PT UP TO BATHROOM SBA TO VOID THIS SHIFT. PT C/O OF R HAND PAIN/NUMBNESS. PT GIVEN HEATING PAD, TO WHICH SHE STATED MODERATE RELIEF. CALL LIGHTIN REACH. WILL GIVE REPORT TO ONCOMING NURSE.
[2021-01-05] MEDS ORDERED: LIDO5TO TOP (12:01)
--- NOTE | 2021-01-05 13:24 | NUR ---
UPDATE PT ALERT AND ORIENTED. VS STABLE. DC ORDERS PROVIDED THIS AM. INSTRUCTIONS PROVIDED TO PT. PT EDUCATED ON NEW MEDICATION. ALL QUESTIONS ANSWERED. PT'S SPOUSE IN TO HANDTOOLS REPAIRER PT. PT TAKEN OUT BY DORI.
== END 2021-01-05 13:24 | disposition home or self-care (01) ==
LOC: ER 18:55 → PCU 18:56
PROVIDERS: Nurse Practitioner Acute Care; Physician Assistant; ADMIT Internal Medicine
DX: R07.9 Chest pain, unspecified (principal); I11.0 Hypertensive heart disease with heart failure; I50.20 Unspecified systolic (congestive) heart failure; J44.9 Chronic obstructive pulmonary disease, unspecified; I25.10 Atherosclerotic heart disease of native coronary artery without angina pectoris; I25.2 Old myocardial infarction; F17.210 Nicotine dependence, cigarettes, uncomplicated; F15.11 Other stimulant abuse, in remission; Z86.711 Personal history of pulmonary embolism; Z79.82 Long term (current) use of aspirin; Z79.01 Long term (current) use of anticoagulants
CPT/HCPCS: 36415; 71046; 80048; 80053; 83880; 84484; 85025; 85610; 85730; 93005; 93010; 94640; 96374; 96375; 96376; 97110; 97165; 99285-25; A9270; G0378; J1170; J2270; J2405; J3010

== ENCOUNTER 2021-04-19 13:21 | Emergency (ER) | payer OTHER ==
[~2021-04-19] VITALS: Ht 157.5 cm; Wt 77.1 kg
[~2021-04-19 13:21] MED LIST changes: +HYDHCL25; +LIDO5TO TOP
[2021-04-19 13:51] LABS: BASOPHILS PERCENT AUTO 1 % (0-2); EOSINOPHILS ABSOLUTE AUTO 0.26 K/mm3 (0.00-0.68); EOSINOPHILS PERCENT AUTO 3 % (0-6); Hematocrit 41.9 % (33.0-51.0); IMMATURE GRAN ABSOLUTE AUTO 0.02 K/mm3 (0.00-0.10); IMMATURE GRAN PERCENT AUTO 0 % (0-1); LYMPHOCYTES ABSOLUTE AUTO 2.74 K/mm3 (0.84-5.20); LYMPHOCYTES PERCENT AUTO 34 % (21-46); MONOCYTES ABSOLUTE AUTO 0.47 K/mm3 (0.16-1.47); MONOCYTES PERCENT AUTO 6 % (4-13); Mean Corpuscular HGB 31.3 pg (26.0-34.0); Mean Corpuscular HGB Conc 33.4 g/dL (31.5-36.5); Mean Corpuscular Volume 94 fL (80-100); Mean Platelet Volume 9.8 fL (9.1-12.4); NEUTROPHILS ABSOLUTE AUTO 4.55 K/mm3 (1.96-9.15); NEUTROPHILS PERCENT AUTO 56 % (41-73); Platelet Count 383 K/mm3 (150-400); RDW Coefficient Variation 13.8 % (11.7-14.2); RDW Standard Deviation 47.1 fL (35.1-46.3); Red Blood Cell Count 4.48 M/mm3 (3.80-5.20); White Blood Cell Count 8.14 K/mm3 (4.00-11.30)
[2021-04-19 14:00] LABS: International Normalized Ratio 1.43; Prothrombin Time Results 15.1 Sec (9.7-11.5)
[2021-04-19 14:08] LABS: Alanine Aminotransfer (ALT/SGP 29 U/L (12-78); Albumin, Blood 3.4 g/dL (3.4-5.0); Albumin/Globulin Ratio 0.9 (0.8-1.8); Alk Phos 167 U/L (50-136); Anion Gap 8 mmol/L (6-16); Aspartate Aminotrans (AST/SGOT 27 U/L (12-37); Bilirubin, Total 0.4 mg/dL (0.1-1.0); Blood Urea Nitrogen 12 mg/dL (8-24); Bun/Creatinine Ratio 13.9 (12.0-20.0); CO2, Blood 24 mmol/L (21-32); Calcium, Blood 8.3 mg/dL (8.5-10.1); Chloride, Blood 111 mmol/L (98-108); Creatinine, Blood 0.86 mg/dL (0.40-1.00); Globulin, Blood 3.7 g/dL (2.2-4.0); Glomerular Filtration Rate >60 (60-); Glucose, Blood 167 mg/dL (70-99); Potassium, Blood 3.9 mmol/L (3.5-5.5); Sodium, Blood 143 mmol/L (136-145); Total Protein, Blood 7.1 g/dL (6.4-8.2); Troponin I 0.022 ng/mL (0.000-0.040)
[2021-04-19] MEDS ORDERED: Chantix1 MG (14:14)
[2021-04-19] MEDS ORDERED: NITR.4SL SL (14:15)
[2021-04-19] MEDS ORDERED: Lisinopril2.5 MG PO (14:22)
[2021-04-19] MEDS ORDERED: NITRO PATCH (14:23)
== END 2021-04-19 15:30 | disposition home or self-care (01) ==
LOC: ER 13:21
PROVIDERS: Physician Assistant
DX: R07.9 Chest pain, unspecified (principal); I11.0 Hypertensive heart disease with heart failure; I50.9 Heart failure, unspecified; F17.210 Nicotine dependence, cigarettes, uncomplicated; Z79.01 Long term (current) use of anticoagulants; Z79.899 Other long term (current) drug therapy
CPT/HCPCS: 71045; 80053; 84484; 85025; 85610; 93005; 93010; 96374; 96375; 99285-25; J1170; J2405

== ENCOUNTER 2022-10-09 21:56 | Emergency (ER) | payer OTHER ==
[~2022-10-09] VITALS: Ht 157.5 cm; Wt 77.1 kg
[~2022-10-09 21:56] MED LIST changes: +Chantix1 MG; +NITR.4SL SL; +NITRO PATCH; +PAXLOVID 2X1501 EACH PO; +PHENERGAN25 MG PR
[2022-10-09] MEDS ORDERED: Roxicodone5 MG PO (23:12)
[2022-10-09] MEDS ORDERED: Prednisone20 MG PO (23:12)
== END 2022-10-09 23:32 | disposition home or self-care (01) ==
LOC: ER 21:56
DX: M10.9 Gout, unspecified (principal); I11.0 Hypertensive heart disease with heart failure; I50.20 Unspecified systolic (congestive) heart failure; I25.2 Old myocardial infarction; Z88.8 Allergy status to other drugs, medicaments and biological substances; Z91.030 Bee allergy status; Z79.82 Long term (current) use of aspirin; Z95.2 Presence of prosthetic heart valve; Z79.01 Long term (current) use of anticoagulants; Z79.899 Other long term (current) drug therapy; Z87.891 Personal history of nicotine dependence
CPT/HCPCS: 73660; A9270; J1885; J7512

== ENCOUNTER 2023-07-09 10:27 | Emergency (ER) | payer OTHER, MEDICARE ==
[~2023-07-09] VITALS: Ht 157.5 cm; Wt 83.9 kg
[~2023-07-09 10:27] MED LIST changes: +COLCHICINE0.6 MG PO; +Prednisone20 MG PO
[2023-07-09] MEDS ORDERED: XARELTO15 M1 PO (12:46)
[2023-07-09 13:16] LABS: BASOPHILS ABSOLUTE AUTO 0.08 K/mm3 (0.00-0.23); BASOPHILS PERCENT AUTO 1 % (0-2); EOSINOPHILS PERCENT AUTO 3 % (0-6); Hematocrit 32.7 % (33.0-51.0); Hemoglobin 10.3 g/dL (11.5-16.0); IMMATURE GRAN ABSOLUTE AUTO 0.02 K/mm3 (0.00-0.10); IMMATURE GRAN PERCENT AUTO 0 % (0-1); LYMPHOCYTES ABSOLUTE AUTO 1.78 K/mm3 (0.84-5.20); LYMPHOCYTES PERCENT AUTO 20 % (21-46); MONOCYTES ABSOLUTE AUTO 0.49 K/mm3 (0.16-1.47); MONOCYTES PERCENT AUTO 6 % (4-13); Mean Corpuscular HGB 26.4 pg (26.0-34.0); Mean Corpuscular HGB Conc 31.5 g/dL (31.5-36.5); Mean Corpuscular Volume 84 fL (80-100); Mean Platelet Volume 9.5 fL (9.1-12.4); NEUTROPHILS ABSOLUTE AUTO 6.14 K/mm3 (1.96-9.15); NEUTROPHILS PERCENT AUTO 70 % (41-73); Platelet Count 398 K/mm3 (150-400); RDW Coefficient Variation 15.5 % (11.7-14.2); RDW Standard Deviation 47.3 fL (35.1-46.3); White Blood Cell Count 8.81 K/mm3 (4.00-11.30)
[2023-07-09 13:40] LABS: Albumin, Blood 3.5 g/dL (3.4-5.0); Bilirubin, Total 0.4 mg/dL (0.1-1.0); Bun/Creatinine Ratio 15.8 (12.0-20.0); Calcium, Blood 8.8 mg/dL (8.5-10.1); Creatinine, Blood 0.82 mg/dL (0.40-1.00); Globulin, Blood 3.5 g/dL (2.2-4.0)
[2023-07-09] MEDS ORDERED: OXAYDO5 M1 PO (15:04)
[2023-07-09 15:22] VITALS: BP 127/55
== END 2023-07-09 15:23 | disposition home or self-care (01) ==
LOC: ER 10:27
PROVIDERS: Student in an Organized Health Care Education/Training Program
DX: S06.9XAA Unspecified intracranial injury with loss of consciousness status unknown, initial encounter (principal); S22.41XA Multiple fractures of ribs, right side, initial encounter for closed fracture; M54.2 Cervicalgia; I11.0 Hypertensive heart disease with heart failure; I50.20 Unspecified systolic (congestive) heart failure; I25.10 Atherosclerotic heart disease of native coronary artery without angina pectoris; F17.210 Nicotine dependence, cigarettes, uncomplicated; Z86.718 Personal history of other venous thrombosis and embolism; Z88.1 Allergy status to other antibiotic agents; Z91.030 Bee allergy status; Z88.6 Allergy status to analgesic agent; Z79.51 Long term (current) use of inhaled steroids; Z79.82 Long term (current) use of aspirin; Z79.01 Long term (current) use of anticoagulants; Z79.52 Long term (current) use of systemic steroids; Z79.899 Other long term (current) drug therapy; W01.198A Fall on same level from slipping, tripping and stumbling with subsequent striking against other object, initial encounter
CPT/HCPCS: 70450; 71101; 71260; 72125; 80053; 85025; 96374-59; 96375-59; 99284-25; J1170; J3010; Q9967

== ENCOUNTER → 2023-08-01 | Outpatient (CLI) | payer MEDICARE, OTHER ==
[~2023-08-01] MED LIST changes: +OXAYDO5 M1 PO; +XARELTO15 M1 PO
[2023-08-02 12:28] LABS: Stool Occult Bld Immuno 1 Negative (NEGATIVE)
== END ==
LOC: LAB 18:57 → LAB SHORT 18:57
PROVIDERS: Physician Assistant
DX: Z12.11 Encounter for screening for malignant neoplasm of colon (principal)
CPT/HCPCS: G0328

== ENCOUNTER 2023-08-28 07:46 | Day surgery (SDC) | payer MEDICARE, OTHER | END 2023-08-28 22:53 | disposition home or self-care (01) | LOC: CT 07:46 → MHTC 07:46 → CT 08:00 | DX: I21.4 Non-ST elevation (NSTEMI) myocardial infarction (principal); I25.10 Atherosclerotic heart disease of native coronary artery without angina pectoris; I11.0 Hypertensive heart disease with heart failure; I50.22 Chronic systolic (congestive) heart failure; J44.9 Chronic obstructive pulmonary disease, unspecified; I42.9 Cardiomyopathy, unspecified; E78.5 Hyperlipidemia, unspecified; Z79.01 Long term (current) use of anticoagulants; Z79.82 Long term (current) use of aspirin; Z79.899 Other long term (current) drug therapy | CPT/HCPCS: 75571 ==